=== PATIENT | female | born 2000 | race Caucasian/White ===

== ENCOUNTER 2024-01-05 19:05 | Outpatient (CLI) | payer MEDICAID, SELFPAY ==
[2024-01-05] VITALS (21 sets, daily range): BP systolic 118–134; BP diastolic 79–96; PULSE 93–126; RESP 16; TEMP 36.5; O2SAT 96–99; BMI 42.5
[2024-01-05 20:30] LABS: Hematocrit 32.9 % (37-47); Hemoglobin 10.7 g/dL (12.0-15.0); Mean Corp Hgb Conc 32.5 g/dL (32-36); Mean Corpuscular Hgb 26.7 pg (27.0-32.0); Mean Platelet Vol. 10.8 fl (6.2-12.0); Platelet Count 334 K/mm3 (150-450); RBC Distribution Width CV 14.6 % (11.6-14.6); RBC Distribution Width SD 43.2 fl (35.1-43.9); Red Blood Count 4.01 M/mm3 (4.2-5.4)
[2024-01-05 20:44] LABS: AST(SGOT) 12 U/L (15-37); Alanine Aminotransfer ALT/SGPT 12 U/L (13-56); Creatinine, Serum 0.62 mg/dL (0.55-1.02); EST Glomerular Filtration Rate 124 mL/min (>60); Est Glom Filt Rate - Afr Amer 150 mL/min (>60); Estimated Creatinine Clearance 177.81 ml/min; Uric Acid 3.5 mg/dL (2.6-6.0)
[2024-01-05 20:54] LABS: Protein, Urine (Random) 20.3 mg/dL (<11.9); Protein:Creat Ratio 60 mg/g CRE (0-200)
== END 2024-01-05 21:30 | disposition home or self-care (01) ==
LOC: WPOUT 19:12 → WP 19:13
PROVIDERS: Referring Provider Obstetrics & Gynecology; Visit Provider Obstetrics & Gynecology
DX: O99.891 Other specified diseases and conditions complicating pregnancy (principal); R03.0 Elevated blood-pressure reading, without diagnosis of hypertension; Z3A.34 34 weeks gestation of pregnancy
CPT/HCPCS: 36415; 59025; 59050; 82565; 82570; 84156; 84450; 84460; 84550; 85027; 99221; G0378

== ENCOUNTER 2024-02-02 19:21 | Inpatient (IN) | payer MEDICAID, SELFPAY ==
[2024-02-02 19:21] VITALS: BMI 42.7
[2024-02-02 19:38] VITALS: PULSE 122; O2SAT 95
[2024-02-02 19:39] VITALS: BP 140/93; PULSE 115
[2024-02-02 19:41] VITALS: BP 142/96; PULSE 121
[2024-02-02] MEDS: Lactated Ringers 1,000 ML 50 ML IV (20:15)
[2024-02-02] MEDS: LACTATED RINGERS 500 ML 999 ML IV (20:19)
[2024-02-02] MEDS: 0.9% Normal Saline Single 100 ML IV.SOLN. INTRA-UTER (20:21)
[2024-02-02 20:26] LABS: Absolute Lymphocyte Count 1.78 X10^3/uL (0.83-4.51); Absolute Neutrophil Count 7.1 X10^3/uL (2.0-7.7); Basophil# 0.03 X10^3/uL; Basophil% 0.3 % (0-1); Eosinophil# 0.04 X10^3/uL; Eosinophils% 0.4 % (0-5); Hemoglobin 10.7 g/dL (12.0-15.0); Lymphocyte # 1.78 X10^3/ul (0.83-4.51); Lymphocyte % 18.3 % (19-41); Mean Corp Hgb Conc 32.4 g/dL (32-36); Mean Corpuscular Volume 80.1 fL (81-99); Mean Platelet Vol. 11.1 fl (6.2-12.0); Monocyte# 0.71 X10^3/uL; Monocyte% 7.3 % (0-10); NRBC Flagged by Analyzer 0 % (0-5); Neutrophil # 7.12 X10^3/uL (2.7-7.7); Neutrophil % 73.3 % (47-70); Platelet Count 352 K/mm3 (150-450); RBC Distribution Width CV 14.9 % (11.6-14.6); RBC Distribution Width SD 43.4 fl (35.1-43.9); Red Blood Count 4.12 M/mm3 (4.2-5.4); White Blood Count 9.7 K/mm3 (4.4-11.0)
--- NOTE | 2024-02-02 20:26 | PCM.HP.OB ---
HPI - General General Date of Admission: 02/02/24 HPI Narrative JESENIA MAURER, is a 23 F who presents at 39w1d for induction of labor due to obesity. Maternal Data Information LANRE Calculator Estimated Delivery Date Method Current WG Current Estimate 02/08/24 Manual 39w 1d PFSH [facility] Medical History (Updated 02/02/24 @ 20:31 by Beverly Haines CNM) Depression Anxiety Allergy/AdvReac Type Severity Reaction Status Date / Time egg (eggs) Allergy Severe Chest Verified 02/02/24 19:49 tightness NST FHR Rate Baby A Baseline: 140 Variability:: Minimal Accelerations:: None Decelerations:: None FHR Category:: Category II Uterine Activity:: Irritability ROS Constitutional Constitutional: Reports systems reviewed and no addt'l complaints, except as documented; Denies headache(s) Eyes Eyes: Denies acute decrease in peripheral vision, blurry vision or change in vision ENT HEENT: Reports systems reviewed and no addt'l complaints, except as documented Cardiovascular Cardiovascular: Denies chest pain or dizziness Respiratory/Chest Respiratory/Chest: Denies cough, dyspnea, dyspnea on exertion, shortness of breath at rest or shortness of breath with exertion Gastrointestinal Gastrointestinal: Denies abdominal pain, diarrhea, nausea or vomiting Genitourinary Genitourinary: Denies abdominal discomfort Musculoskeletal Musculoskeletal: Denies limited range of motion Integumentary Integumentary: Reports systems reviewed and no addt'l complaints, except as documented Neurologic Neurologic: Reports systems reviewed and no addt'l complaints, except as documented Psychiatric Psychiatric: Reports systems reviewed and no addt'l complaints, except as documented Endocrine Endocrinology: Reports systems reviewed and no addt'l complaints, except as documented Hematologic/Lymphatic Hematologic/Lymphatic: Reports systems reviewed and no addt'l complaints, except as documented Allergic/Immunologic Allergic/Immunologic: Reports systems reviewed and no addt'l complaints, except as documented Vital Signs Vital Signs Vital Signs: 02/02/24 19:38 02/02/24 19:38 02/02/24 19:39 Pulse Rate 122 H Blood Pressure 140/93 H BP Systolic 140 BP Diastolic 93 Pulse Ox 95 02/02/24 19:39 02/02/24 19:41 02/02/24 19:41 Pulse Rate 115 H 121 H Blood Pressure 142/96 H BP Systolic 142 BP Diastolic 96 Pulse Ox Physical Exam Const alert and oriented x3 General Appearance: cooperative Orientation / Consciousness: awake, oriented to person, oriented to place and oriented to time Exam Limitations: no limitations HEENT normocephalic Head and Scalp: normal to inspection, normocephalic and atraumatic Face and Sinus: normal facial exam Eyes General Eye: normal appearance of both eyes Neck full ROM Chest Chest: symmetrical chest wall rise Resp normal respiratory effort and normal air movement Auscultation: clear to auscultation bilaterally Cardio regular rate, regular rhythm, S1 normal heart sound, S2 normal heart sound, no murmurs, no rub, no gallops and no clicks GI normal to inspection, nondistended, normoactive bowel sounds and non-tender appearance of the vagina normal Bladder / Kidney Exam: no CVA tenderness Manual OB Exam: estimated gestational size appropriate, presentation cephalic, dilated 1, effaced 60, station -3 and other diego inserted through cervical os and 30ml NS instilled. Patient tolerated well. Back/Spine normal ROM Extremity normal to inspection and full ROM Skin no rashes or lesions noted Neuro oriented x3, CN's II-XII intact bilaterally and moves all extremities Sensorium / Orientation: awake, alert and oriented to person Motor Exam: clonus absent Deep Tendon Reflexes: Rt Patellar (L4): 2+ and Lt Patellar (L4): 2+ Labs Labs Labs: Blood Type Pending Antibody Screen Pending Hct 32.9 % (37-47) L Hgb 10.7 g/dL (12.0-15.0) L Syphilis Total Ab Pending GBS negative HIV negative HepC negative HBsAG negative RPR negative HepB negative GC/CT negative Rubella Immune O negative Assessment & Plan (1) Elevated blood pressure affecting in third trimester, antepartum: (2) 39 weeks gestation of : (3) Encounter for induction of labor: (4) History of depression: (5) Rh negative status during : PLAN: Plan 1) Admit to labor and delivery 2) Routine labs and preeclampsia labs for mild elevated BP, asymptomatic. 3) Continuous EFM 4) Pain management upon request, planning epidural 5) Diego bulb inserted for cervical ripening and cytotec. Will then start pitocin 6) Dr. Guillen collaborative physician and notified of patient status, above assessment, and plan.
[2024-02-02 20:43] VITALS: BP 126/94; PULSE 133; O2SAT 98
[2024-02-02 20:52] LABS: AST(SGOT) 13 U/L (15-37); Alanine Aminotransfer ALT/SGPT 9 U/L (13-56); Creatinine, Serum 0.64 mg/dL (0.55-1.02); EST Glomerular Filtration Rate 120 mL/min (>60); Est Glom Filt Rate - Afr Amer 145 mL/min (>60); Uric Acid 4.1 mg/dL (2.6-6.0)
[2024-02-02] MEDS: miSOPROStol 25 MCG TABLET VAGINAL (21:04)
[2024-02-02 21:08] LABS: Syphilis Antibodies Non-reactive
[2024-02-02 23:00] LABS: Protein, Urine (Random) 46.7 mg/dL (<11.9); Protein:Creat Ratio 163 mg/g CRE (0-200)
[2024-02-03] VITALS (54 sets, daily range): BP systolic 115–155; BP diastolic 59–89; PULSE 79–134; RESP 16–18; TEMP 36.4–37.8; O2SAT 78–100
[2024-02-03] MEDS: Oxytocin 15 Units/NS 250ml 15 UNITS/250 ML IV.SOLN 2 UNITS IV (01:10)
[2024-02-03] MEDS: Lactated Ringers 1,000 ML 50 ML IV ×2 (06:02→08:28)
[2024-02-03] MEDS: fentaNYL-bupivacaine (epidural) 100 ML BAG EPIDURAL (07:48)
--- NOTE | 2024-02-03 08:19 | PN.OBGYN_ITS ---
Subjective Subjective pt doing well and offers no complaints. comfortable with epidural. RN at bedside. Objective Data Objective Data Vital Signs: Vital Signs Temp Pulse Resp BP Pulse Ox 98.6 F 123 H 16 135/74 H 98 02/03/24 07:34 02/03/24 08:17 02/03/24 07:49 02/03/24 08:16 02/03/24 08:17 Weight: 256 lb 9.889 oz Body Mass Index (BMI) 42.7 Intake & Output: Intake and Output for Last 24 Hours 02/01/24 02/02/24 02/03/24 23:59 23:59 23:59 Intake Total 500 / 500 558.84 / 558.84 Output Total 1000 / 1000 Balance 500 / 500 -441.16 / -441.16 Lab / Micro Data 02/02/24 20:15 02/02/24 20:15 Labs: Laboratory Results - last 24 hr 02/02/24 20:15: WBC 9.7, RBC 4.12 L, Hgb 10.7 L, Hct 33.0 L, MCV 80.1 L, MCH 26.0 L, MCHC 32.4, RDW Std Deviation 43.4, RDW Coeff of Cl 14.9 H, Plt Count 352, MPV 11.1, Immature Gran % (Auto) 0.400, Neut % (Auto) 73.3 H, Lymph % (Auto) 18.3 L, [place] % (Auto) 7.3, Eos % (Auto) 0.4, Baso % (Auto) 0.3, Absolute Neuts (auto) 7.1, Absolute Lymphs (auto) 1.78, Nucleated RBC % 0, Creatinine 0.64, Est GFR (MDRD) Af Amer 145, Est GFR (MDRD) Non-Af 120, Uric Acid 4.1, AST 13 L, ALT 9 L, Syphilis Total Ab Non-reactive, Blood Type O NEGATIVE, Antibody Screen NEGATIVE 02/02/24 22:15: U Random Total Protein 46.7 H, Urine Creatinine 287.00, Protein/Creatinin Ratio 163 Physical Exam Const alert and no apparent distress General Appearance: comfortable HEENT normocephalic Resp normal respiratory effort Narrative: Cvx 3/60/-2, head well applied Assessment & Plan (1) Rh negative status during : (2) History of depression: (3) Encounter for induction of labor: PLAN: AROM performed in usual fashion with return of small amount of clear fluid. IUPC placed. Pitocin at 14 mu/min. Category 1 tracing. Cont current management. (4) 39 weeks gestation of : (5) Elevated blood pressure affecting in third trimester, antepartum:
[2024-02-03] MEDS: Ondansetron 4 MG/2 ML Vial IV (08:56)
[2024-02-03] MEDS: Oxytocin 15 Units/NS 250ml 15 UNITS/250 ML IV.SOLN 83 UNITS IV (12:40)
--- NOTE | 2024-02-03 13:48 | OB.VAGDELI_ITS ---
Assessment & Plan (1) Rh negative status during : (2) History of depression: (3) Encounter for induction of labor: (4) 39 weeks gestation of : (5) Elevated blood pressure affecting in third trimester, antepartum: (6) Vaginal delivery: Maternal Data Information LANRE Calculator Estimated Delivery Date Method Current WG Current Estimate 02/08/24 Manual 39w 2d Vaginal Delivery Maternal Presentation Maternal Presentation: Medically Indicated Induction Type of Induction: Pitocin, [place] Bulb, Amniotomy and Cytotec Medical Reason for Induction: Other (obesity) Vaginal Delivery Information Procedure Performed: Spontaneous Vaginal Delivery Surgeon/Practitioner: Nell Guillen Date of Procedure: 02/03/24 Pre-Procedure Diagnosis: 39 week gestation, obesity in Post-Procedure Diagnosis: As above Type of anesthesia: Epidural and Local with 1% Lidocaine Special Medications: None Estimated Blood Loss: 100 mL Fluids Replaced: N/A Findings Description of procedure: The patient was complete, 100% effaced and 0 station. She began pushing with good maternal effort. The head of the infant was delivered in left occiput anterior position. A loose nuchal cord x 1 was reduced without compression. The anterior shoulder was delivered with gentle downward traction followed by the posterior shoulder and body without any excessive traction, force, or delay. A vigorous viable female infant was placed on maternal abdomen. The cord was clamped and cut after a 60 second delay by the father of the baby. The placenta was removed using fundal massage and noted to be normal-appearing and intact with a three-vessel cord. Fundus was firm and bleeding hemostatic. Local was injected for the repair given in adequate pain control with the epidural. Vaginal and upper vagina were normal appearing. A second-degree perineal laceration was noted. A left labial laceration was noted to be bleeding. 3-0 Vicryl was used to repair the second-degree perineal laceration in usual fashion. Several interrupted stitches of 3-0 Vicryl were used to reapproximate the left labial laceration and achieve hemostasis. Hemostasis stasis was noted. Sharp and sponge counts were correct. A vaginal sweep was performed. Procedure findings: VFI in JIAN position with loose nuchal cord x 1 without compression. Apgars 8, 9. Presentation: Vertex Amniotic Membrane Rupture Type: Artificial Amniotic Fluid Description: Clear Placental Delivery Description: Expressed Specimen collected: No Cord Vessel Description: 3 Vessels Cord Entanglement: Around neck x 1, loose Nuchal Cord Compression: Without compression Infant A Gender: Female (1 minute): 8 (5 minute): 9 Delayed Cord Clamping: Yes [employer] Support Manager supervisor dried yeast: No Post Vaginal Deli Medications given after delivery: IV Pitocin Episiotomy Description: None Laceration: 2nd degree Complication Complications: No
[2024-02-03] MEDS: Lidocaine 1% (20 ml mdv) 20 ML Vial INFILT (14:07)
[2024-02-03] MEDS: Rho(D) Immune Globulin 300 MCG (1500 Unit) Syringe IV (22:07)
[2024-02-03] MEDS: 0.9% Saline Lock 10 ML Syringe IV (22:07)
[2024-02-04] VITALS (9 sets, daily range): BP systolic 117–137; BP diastolic 65–75; PULSE 76–83; RESP 16; TEMP 36.6–36.9; O2SAT 98–99
--- NOTE | 2024-02-04 08:49 | PCM.PN.OB ---
Subjective Subjective Doing well. Ambulating and voiding without difficulty. Mild lochia. Breast feeding. Objective Data Objective Data Vital Signs: Vital Signs Temp Pulse Resp BP Pulse Ox O2 Del Method 97.8 F 76 16 123/75 H 98 Room Air 02/04/24 03:59 02/04/24 04:00 02/04/24 03:59 02/04/24 04:00 02/03/24 16:04 02/04/24 03:59 Oxygen Delivery Method Room Air Weight: 116.4 kg Body Mass Index (BMI) 42.7 Intake & Output: Intake and Output for Last 24 Hours 02/02/24 02/03/24 02/04/24 23:59 23:59 23:59 Intake Total 500 / 500 2046.17 / 2046.17 Output Total 1100 / 1100 Balance 500 / 500 946.17 / 946.17 Lab / Micro Data 02/02/24 20:15 02/02/24 20:15 Labs: Laboratory Results - last 24 hr 02/03/24 14:12: Screen NEGATIVE, Baby's Blood Type B POSITIVE, Baby's PRAMOD NEGATIVE ROS Constitutional Constitutional: Denies fatigue, fever(s) or malaise Eyes Eyes: Denies change in vision ENT HEENT: Denies dizziness or headache(s) Cardiovascular Cardiovascular: Denies chest pain, dyspnea or lightheadedness Respiratory/Chest Respiratory/Chest: Denies cough or dyspnea Gastrointestinal Gastrointestinal: Denies change in bowel habits Genitourinary Genitourinary: Denies burning urination or genital lesions Integumentary Integumentary: Denies rash Neurologic Neurologic: Denies confusion, dizziness, headache(s), numbness or weakness Physical Exam Const alert and no apparent distress Narrative: Fundus firm, below umbilicus. Assessment & Plan (1) Vaginal delivery: (2) History of depression: (3) Elevated blood pressure affecting in third trimester, antepartum: PLAN: Plan Monitor BP. Routine PP care
[2024-02-04] MEDS: MEASLES,MUMPS,RUBELLA VACC/PF 0.5 ML SC (10:35)
--- NOTE | 2024-02-04 15:53 | CASEMGMT ---
Social Work Assessment Labor and Delivery Unit Patient Address: [address] [place] [address] Phone number: [phone] Date of Referral: 02/02/24 Time of Referral:?2201 Referred By: Beverly Haines Date of Intervention: ??02/04/24 Time of Intervention:? 0 Reason for Referral:? mental health Sw completed chart review and acknowledges social work consult due to maternal mental health history. Sw presented to bedside and introduced self to mother of baby (JOSI Waters). MOB had a visitor present, who she identified as her cousin. KANDICE stated it was okay for sw to complete assessment with her cousin present. History obtained from: medical records and mother of baby (KANDICE)??? Household composition: Currently residing in the family home is MOB, father of baby (FOChacho Means) and baby will be added to residence when ready for discharge. MOB denies any issues or concerns with housing. Patient's parent/guardian status:? KANDICE reports that she and FOMega met online and have been together for almost a year. KANDICE denies any issues or concerns with domestic violence or intimate partner violence. ? Medical History: KANDICE is 23 year old female who is 1, para 0- now 1 following labor and delivery of . KANDICE received routine care during with [facility]. KANDICE presented to hospital for scheduled induction of labor and delivered baby via vaginal delivery on 02/03/24. Baby girl, Jeannie, was born weighing 7lb 6oz with apgars of 8 and 9 at one and five minutes of life, respectfully. KANDICE is breast feeding and states that it is going well. Baby will be followed by Dr. Farrell at [facility]. Educational Status:?Both parents graduated from high school and MOB states that she attended some college, but did not get a degree. No concerns with reading, learning or comprehension. Financial Status: FOMega is employed in a factory. KANDICE is not employed at this time Supplies: Parents have obtained all necessary baby supplies, including: car seat, safe sleep space, clothes, diapers and wipes. Childcare/Caregiver(s):?KANDICE reports that she will be the primary caregiver to baby along with FOB when he is not working Transportation:??Both parents have their drivers license and reliable means of transportation, no barriers at this time. Programs/Agencies Involved: ???KANDICE states that she is connected to [employer] benefits. Children Services/Legal Issues:??No history of children services involvement. NO issues or concerns warranting referral to be made at this time. ? Behavioral Health Issues: ??Mental Health History:?KANDICE states that BRUNA has been diagnosed with anxiety and is prescribed fluoxetine. KANDICE has a history of anxiety and depression, but states that those diagnoses were situational and is no longer something that she struggles with. MOB states that at [place] and was not in a healthy relationship. MOB states that since she has moved home and is now in a healthy relationship with FOB those are things that she no longer struggles with. ?? Substance Use History:?MOB denies substance use prior to and during . ? Family History:?MOB denies family history of substance use or significant mental health diagnoses. ? Drug Screens: No drug screens observed in chart review. Family/Social Stressors:? KANDICE denies any issues, concerns or stressors at this time. Support Systems: Paternal and maternal grandparents. Depression/Shaken Baby/Safe Sleeping: Sw educated MOB on signs and symptoms of baby blues and mood and anxiety disorders to be mindful of during this period. Sw educated MOB that she is more at risk due to her mental health history. MOB stated that she has had several conversations with FOB regarding this, and she knows that he would be able to recognize if MOB were struggling and would know how to help and support her. Sw educated MOB on shaken baby prevention and ABCs of safe sleep, MOB expressed understanding. ASSESSMENT:? MOB and baby are currently admitted following labor and delivery. MOB was observed to be sitting comfortably in reclining chair feeding baby. MOB welcoming and receptive to sw involvement and support. MOB talkative and engaging throughout completion of psychosocial assessment. MOB recognizing her mental health history and understands how it may impact her period. MOB with natural supports in place and has obtained all necessary baby supplies. PLAN:?? No other services requested or indicated. MOB and baby to be discharged when medically ready. Parents were provided literature regarding: signs and symptoms of baby blues and mood and anxiety disorders, Help Me Grow, shaken baby prevention, ABCs of safe sleep and a list of county resources that are available for them should any needs present themselves. Tayo Solis, [employer] F[employer]NACE KEEPER HELPER, NURSERY NURSE
[2024-02-05 01:55] VITALS: BP 132/68; PULSE 78; O2SAT 95
[2024-02-05 01:56] VITALS: BP 132/68; PULSE 80; RESP 16; TEMP 36.6; O2SAT 96
[2024-02-05 04:20] VITALS: BP 121/71; PULSE 78; RESP 12; TEMP 36.4; O2SAT 97
[2024-02-05 04:21] VITALS: BP 121/71; PULSE 76
--- NOTE | 2024-02-05 07:33 | PCM.PN.OB ---
Subjective Subjective Doing well. Ambulating and voiding without difficulty. Mild lochia. Breast feeding. Objective Data Objective Data Vital Signs: Vital Signs Temp Pulse Resp BP Pulse Ox O2 Del Method 97.6 F L 76 12 121/71 H 97 Room Air 02/05/24 04:20 02/05/24 04:21 02/05/24 04:20 02/05/24 04:21 02/05/24 04:20 02/05/24 04:20 Oxygen Delivery Method Room Air Weight: 116.4 kg Body Mass Index (BMI) 42.7 Intake & Output: Intake and Output for Last 24 Hours 02/03/24 02/04/24 02/05/24 23:59 23:59 23:59 Intake Total 2046.17 / 2046.17 Output Total 1100 / 1100 Balance 946.17 / 946.17 Lab / Micro Data 02/02/24 20:15 02/02/24 20:15 ROS Constitutional Constitutional: Denies fatigue, fever(s) or malaise Eyes Eyes: Denies change in vision ENT HEENT: Denies dizziness or headache(s) Cardiovascular Cardiovascular: Denies chest pain, dyspnea or lightheadedness Respiratory/Chest Respiratory/Chest: Denies cough or dyspnea Gastrointestinal Gastrointestinal: Denies change in bowel habits Genitourinary Genitourinary: Denies burning urination or genital lesions Integumentary Integumentary: Denies rash Neurologic Neurologic: Denies confusion, dizziness, headache(s), numbness or weakness Physical Exam Const alert and no apparent distress Narrative: Fundus firm, below umbilicus. Assessment & Plan (1) Vaginal delivery: PLAN: Plan Discharge home
--- NOTE | 2024-02-05 07:35 | PCM.DC.SUM ---
Providers Date of Admission: 02/02/24 Date of Discharge: 02/05/24 Primary Care Physician: Maria C Primary Care Phys Reason For Visit: INDUCTION / VAGINAL DELIVERY Diagnosis Discharge Diagnosis (1) Vaginal delivery: Status: Acute Code(s): O80 - Encounter for full-term uncomplicated delivery Plan Discharge home Hospital Course Operations None Procedures None Summary of Care Provided Minutes Spent on Discharge: 20 Physical Exam Const alert and no apparent distress Narrative: Fundus firm, below umbilicus. Weight / BMI Weight Weight: 116.4 kg Body Mass Index (BMI) 42.7 ABG / Lab / Microbiology Data 02/02/24 20:15 02/02/24 20:15 D/C Instructions May resume sexual activity in: 6 weeks DC O2, CPAP, BIPAP Needs Additional Home O2 Discharge instructions: No DC home with Oxygen: No Please Follow Up With: Ruchi Olivarez MD When: Follow up with our office in 1-2 and 6 weeks or as needed. [phone] Meaningful Use Info Meaningful Use Meaningful Use Diagnoses (Choose all that apply): None applicable Ischemic Stroke Statin Dosing Therapy Reference: STATIN DOSE THERAPY REFERENCE: * Patients > 75 years receive moderate or high dose statin therapy. * Patients 75 years or YOUNGER should receive HIGH intensity statin dose unless contraindicated. You will be required to document reason for non-treatment if statin daily dose does not meet guidelines. HIGH DOSE STATIN THERAPY DAILY Atorvastatin > than or = to 40 mg Rosuvastatin > than or = to 20 mg Amlodipine + Atorvastatin > than or = to 2.5/40 mg Ezetimibe + Simvastatin 10/80 mg Simvastatin 80mg Discharge Plan Admission Admit Date/Time: 02/02/24 19:21 Primary Reason for Your Visit: delivery Attending Provider: Nell Guillen Primary Care Provider: Care Physician,No Primary Consulting Providers: Beverly Haines Discharge Orders/Prescriptions Referrals / Follow Up: Care Physician,No Primary [Primary Care Provider] - Disposition Disposition (needs filled in before D/C Order can be placed): Home, Self Care
[2024-02-05 08:18] VITALS: BP 125/84; PULSE 71
[2024-02-05 08:30] VITALS: BP 125/84; PULSE 70; RESP 15; TEMP 36.3; O2SAT 96
== END 2024-02-05 10:20 | disposition home or self-care (01) | DRG 560 ==
PROVIDERS: Advanced Practice Midwife; Admitting Provider Obstetrics & Gynecology; Referring Provider Obstetrics & Gynecology; Visit Provider Obstetrics & Gynecology
DX: O99.214 Obesity complicating childbirth (principal); Z37.0 Single live birth; R03.0 Elevated blood-pressure reading, without diagnosis of hypertension; O69.81X0 Labor and delivery complicated by cord around neck, without compression, not applicable or unspecified; Z3A.39 39 weeks gestation of pregnancy; Z67.91 Unspecified blood type, Rh negative; Z86.59 Personal history of other mental and behavioral disorders; O70.1 Second degree perineal laceration during delivery
CPT/HCPCS: 59025; 59050; 82565; 82570; 84156; 84450; 84460; 84550; 85025; 85027; 85461; 86780; 86850; 86900; 86901; 90384; 99221; J7120; A4216; G0378; J2405; J2790; J2791